=== PATIENT | male | born 1965 | race Caucasian/White ===

== ENCOUNTER 2021-04-15 15:31 | Emergency (ER) | payer MEDICARE, OTHER ==
[~2021-04-15] VITALS: Ht 167.6 cm; Wt 81.6 kg
[2021-04-15] MEDS ORDERED: NA P133E RC (16:28)
[2021-04-15] MEDS ORDERED: GABA600T12 GT (16:28)
[2021-04-15] MEDS ORDERED: OMEP20TA5 PO (16:28)
[2021-04-15] MEDS ORDERED: ACETAMINOPHEN GT (16:28)
[2021-04-15] MEDS ORDERED: BISA10SU61 RC ×2 (16:28)
[2021-04-15] MEDS ORDERED: TAMS-3 GT (16:28)
[2021-04-15] MEDS ORDERED: OMEPRAZOLE SUSP GT (16:28)
[2021-04-15] MEDS ORDERED: TOBRAMYCIN SULFATE IV (16:28)
[2021-04-15] MEDS ORDERED: ATOR10TA GT (16:28)
[2021-04-15] MEDS ORDERED: METO25TA6 GT (16:28)
[2021-04-15] MEDS ORDERED: LEVETIRACETAM GT (16:28)
[2021-04-15] MEDS ORDERED: CLON0.1T GT (16:28)
[2021-04-15] MEDS ORDERED: AMLO-212 GT (16:28)
[2021-04-15] MEDS ORDERED: LEVE500T20 PO (16:28)
[2021-04-15] MEDS ORDERED: BENA20TA9 GT (16:28)
[2021-04-15] MEDS ORDERED: SENN-261 GT (16:28)
[2021-04-15] MEDS ORDERED: DIATR MEGLU/DIATRIZOATE SODIUM 30 ML BOTTLE PO ONE (16:30)
--- NOTE | 2021-04-15 16:45 | NUR ---
DR COHEN EVALUATED THE PT. DR COHEN PLACED GT #18. PT TOLERATED TO PROCEDURE WITHOUT COMPLICATIONS.
[2021-04-15] MEDS ORDERED: DIATR MEGLU/DIATRIZOATE SODIUM 30 ML BOTTLE ONE (16:53)
[2021-04-15] MEDS ORDERED: IPRA-ALBUTEROL IH (18:47)
--- NOTE | 2021-04-15 19:10 | NUR ---
Patient found on ground in prone position. Assisted patient back into bed with 4 other personnel, backboard utilized in order to ensure spinal immobilization. Patient is nonverbal at baseline, is able to track movement with eyes and gaze. Airway intact, tracheostomy in place. Skin tear noted superficially above left eyebrow. Bleeding controlled with pressure. ERMD made aware of incident. Awaiting order for CT scan. Gurney locked, sr upx2, and bed in lowest position. Will continue to monitor as imaging studies are pending.
[2021-04-15] MEDS ORDERED: diphenhydrAMINE 50 MG/1 ML VIAL IV ONE (19:30)
[2021-04-15] MEDS ORDERED: HALOPERIDOL LACTATE 5 MG/1 ML VIAL IV ONE (19:30)
[2021-04-15] MEDS ORDERED: LORAZEPAM 2 MG/1 ML VIAL IV ONE (19:30)
[2021-04-15] MEDS ORDERED: diphenhydrAMINE 50 MG/1 ML VIAL ONE (19:42)
[2021-04-15] MEDS ORDERED: HALOPERIDOL LACTATE 5 MG/1 ML VIAL ONE (19:42)
[2021-04-15] MEDS ORDERED: LORAZEPAM 2 MG/1 ML VIAL ONE (19:43)
--- NOTE | 2021-04-15 20:08 | NUR ---
Received handof report from BRENDA [place]. Patient [email or web address], here for GT malfunction. GT was readjusted by Dr. Cooley and is pending discharge back to facility.
--- NOTE | 2021-04-15 20:25 | NUR ---
Dr. Clemente, Radiology, on the line with ERMElisabeth Avelar. Patient has a subacute bleed, but bleed has had the bleed for approximately a few weeks. Radiologist states the patient has a sub-acute bleed. Per ERMD, patient is cleared to return to facility.
--- NOTE | 2021-04-15 20:55 | NUR ---
Transport has been setup with [facility]. Report given to Aminah at [facility]. ETA 60-90 min
--- NOTE | 2021-04-15 21:22 | NUR ---
ERMD at bedside applying tissue adhesive to left eyebrow lac.
--- NOTE | 2021-04-15 23:26 | NUR ---
[facility] here to transport patient back with [employer] accompanying. Patient discharged to home in stable condition. Written and verbal after care instructions given to Aminah. Stressed follow up or return to ER for worsening s/s.
[2021-04-15 23:30] VITALS: BP 128/83
== END 2021-04-15 23:31 ==
LOC: ER 15:31
DX: Z43.1 Encounter for attention to gastrostomy (principal); Z93.0 Tracheostomy status; I69.298 Other sequelae of other nontraumatic intracranial hemorrhage; G93.49 Other encephalopathy; Z74.01 Bed confinement status; S01.112A Laceration without foreign body of left eyelid and periocular area, initial encounter; W06.XXXA Fall from bed, initial encounter; Y92.230 Patient room in hospital as the place of occurrence of the external cause; J96.91 Respiratory failure, unspecified with hypoxia; E78.5 Hyperlipidemia, unspecified; I10 Essential (primary) hypertension; N40.0 Benign prostatic hyperplasia without lower urinary tract symptoms; Z79.899 Other long term (current) drug therapy; J96.92 Respiratory failure, unspecified with hypercapnia
CPT/HCPCS: 12011; 43762; 70450; 72125; 74018; 96374; 96375; 99285; J1200; J1630; J2060; A4663; C1758; Q9963